=== PATIENT | male | born 1980 | race Caucasian/White ===

== ENCOUNTER → 2018-12-26 10:00 | Outpatient (CLI) | payer OTHER, SELFPAY ==
--- NOTE | 2018-12-26 | DI.US.S_ITS ---
PROCEDURE: US CAROTID DOPPLER BI INDICATIONS: Unspecified visual disturbance TECHNIQUE: Color and pulse Doppler interrogation was performed of both carotid systems, with image documentation and velocity measurements. COMPARISON: None. FINDINGS: Stenosis calculations are based on SRU (S[employer] in Ul[employer]) criteria. Right side: Brachial blood pressure: 151/92 mm Hg. Common carotid artery peak systolic velocity: 93 cm/sec. Internal carotid artery peak systolic velocity: 75 cm/sec. Internal carotid artery end diastolic velocity: 22 cm/sec. External carotid artery peak systolic velocity: 76 cm/sec. ICA/CCA peak systolic ratio: 0.81. Jane scale imaging description: No visualized plaque. Percent internal carotid artery stenosis: No hemodynamically significant stenosis. Vertebral artery: Flow direction is antegrade. Left side: Brachial blood pressure: 137/94 mm Hg. Common carotid artery peak systolic velocity: 97 cm/sec. Internal carotid artery peak systolic velocity: 77 cm/sec. Internal carotid artery end diastolic velocity: 30 cm/sec. External carotid artery peak systolic velocity: 113 cm/sec. ICA/CCA peak systolic ratio: 0.79 . Jane scale imaging description: No visualized plaque. Percent internal carotid artery stenosis: No hemodynamically significant stenosis. Vertebral artery: Flow direction is antegrade. . IMPRESSION: No hemodynamically significant stenosis. Dictated by: Jasmyne Cervantes M.D. on 12/26/2018 at 15:40 Approved by: Jasmyne Cervantes M.D. on 12/26/2018 at 15:42
== END ==
PROVIDERS: Visit Provider Family Medicine
DX: H53.9 Unspecified visual disturbance (principal)
CPT/HCPCS: 93880

== ENCOUNTER → 2019-10-09 18:08 | Outpatient (CLI) | payer OTHER, SELFPAY ==
--- NOTE | 2019-10-09 | DI.MRI.S_ITS ---
PROCEDURE: MR CERVICAL SPINE WO CON INDICATIONS: RADICULOPATHY, CERVICAL REGION TECHNIQUE: Noncontrast sagittal T1 spin echo and T2 fast spin echo, sagittal STIR, foraminal oblique sagittal T2 fast spin echo, and axial gradient echo or T2 fast spin echo through the cervical spine. COMPARISON: [facility], CR, XR CERVICAL SPINE WITH OBLIQUES, 11/07/2018, 17:26. FINDINGS: Image quality: Partially degraded by motion artifact. Alignment and Curvature: There is loss of normal cervical lordosis. Bone Marrow: Marrow demonstrates normal overall signal. There is mild reactive signal within the endplates adjacent to the C4-C5 and C5-C6 intervertebral discs. Spinal Cord: Visualized spinal cord has normal size and signal. No cerebellar tonsillar herniation. Paraspinous Soft Tissues: No paravertebral masses. Prevertebral soft tissues are normal in thickness. C2-C3: Normal appearance. C3-C4: Normal appearance. C4-C5: Moderate disc desiccation. Moderate diffuse disc bulge. Mild facet and uncovertebral hypertrophy bilaterally. Moderate canal stenosis. Mild bilateral foraminal stenosis. C5-C6: Mild disc height loss. Moderate disc desiccation. Moderate diffuse disc bulge. Mild facet and uncovertebral hypertrophy bilaterally. Moderate canal stenosis. Mild bilateral foraminal stenosis. C6-C7: Mild diffuse disc bulge. No significant canal, nor foraminal stenosis. C7-T1: Normal appearance. IMPRESSION: 1. Mid/lower cervical degenerative disc and facet disease, as well as uncovertebral hypertrophy. 2. Moderate canal stenoses at C4-C5 and C5-C6. 3. Mild foraminal stenoses as described above. Dictated by: Elenita Gamble M.D. on 10/10/2019 at 8:39 Approved by: Elenita Gamble M.D. on 10/10/2019 at 8:42
== END ==
PROVIDERS: Visit Provider Family Medicine
DX: M50.121 Cervical disc disorder at C4-C5 level with radiculopathy (principal); M48.02 Spinal stenosis, cervical region
CPT/HCPCS: 72141

== ENCOUNTER → 2022-11-22 11:56 | Outpatient (CLI) | payer OTHER, MEDICAID, SELFPAY ==
--- NOTE | 2022-11-22 11:58 | DI.RAD.S_ITS ---
PROCEDURE: XR CERVICAL SPINE 4V OR 5V INDICATIONS: NECK PAIN TECHNIQUE: 5 views of the cervical spine acquired. COMPARISON: [facility], MR, MR CERVICAL SPINE WITHOUT CONTRAST, 08/15/2022, 18:45. [facility], CR, XR CERVICAL SPINE 2 OR 3 VIEWS, 01/27/2021, 13:06. FINDINGS: Bones: No fractures or dislocations to the C7 level. Mild degenerative change at C5-C6. Oblique images demonstrate no bony foraminal stenoses. Soft tissues: No prevertebral soft tissue swelling. IMPRESSION: Mild degenerative change at C5-C6. Dictated by: Jose Daniel Carpio M.D. on 11/22/2022 at 14:22 Approved by: Jose Daniel Carpio M.D. on 11/22/2022 at 14:24
--- NOTE | 2022-11-22 11:58 | DI.RAD.S_ITS ---
PROCEDURE: XR LUMBAR SPINE MIN 4V INDICATIONS: LOW BACK PAIN TECHNIQUE: 5 views of the lumbar spine were acquired, including bilateral oblique views. COMPARISON: [facility], CT, CT CHEST ABDOMEN PELVIS WITH TRAUMA, 10/07/2019, 18:53. FINDINGS: Bones: 5 nonrib-bearing vertebrae are present. There is normal bony alignment. Minimal degenerative change is seen. No vertebral body compression fractures. No suspicious bony lesions. Soft tissues: Overlying bowel gas pattern is normal. No suspicious soft tissue calcifications. Oblique images: No pars defects. IMPRESSION: Minimal degenerative change appreciated. Dictated by: Jose Daniel Carpio M.D. on 11/22/2022 at 14:19 Approved by: Jose Daniel Carpio M.D. on 11/22/2022 at 14:22
== END ==
PROVIDERS: PCP Family Medicine; Referring Provider Anesthesiology; Visit Provider Anesthesiology
DX: M54.50 Low back pain, unspecified (principal); M47.22 Other spondylosis with radiculopathy, cervical region; M50.122 Cervical disc disorder at C5-C6 level with radiculopathy; G62.9 Polyneuropathy, unspecified; G89.4 Chronic pain syndrome
CPT/HCPCS: 72050; 72110; 99214